=== PATIENT | female | born 1955 | race Caucasian/White ===

== ENCOUNTER 2016-07-25 10:02 | Day surgery (SDC) | payer BC ==
[2016-07-23 15:31] VITALS: BMI 30.3
[~2016-07-25 10:02] MED LIST: LACTATED RINGERS 1,000 ML IV SCH; LIDOCAINE 1% 20 ML VIAL (10MG/ML) FOR IV START INTRADERMA PRN
[2016-07-25 10:49] VITALS: TEMP 98.5
[2016-07-25] MEDS ORDERED: PROPOFOL 10 MG/ML 20 ML VIAL IV ONE (11:17)
--- NOTE | 2016-07-25 11:32 | P.PCN ---
Date of Procedure: 07/25/16 Procedure(s) Performed: BRIEF HISTORY: Patient is a 60-year-old pleasant white female, scheduled for an elective colonoscopy as a part of evaluation of prior history of colon polyps. Last endoscopy was in 2012 and was noted to have tubular adenoma. PROCEDURE PERFORMED: Colonoscopy with biopsy. PREOPERATIVE DIAGNOSIS: History of colon polyps. IV sedation per Anesthesia. PROCEDURE: After informed consent was obtained, the patient, was brought into the endoscopy unit. IV sedation was administered by Anesthesia under continuous monitoring. Digital rectal examination was normal. Initially the Olympus CF- 160 flexible video colonoscope was then inserted in the rectum, gradually advanced into the cecum without any difficulty. Careful examination was performed as the scope was gradually being withdrawn. Ileocecal valve and the appendiceal orifice were visualized and appeared normal. Prep was excellent. Mucosa of the cecum, ascending colon, appeared normal. In the hepatic flexure there was a 5 mm polyp that was removed by biopsy. The rest of the transverse colon, descending colon, sigmoid colon, and rectum appeared normal. Scattered sigmoid diverticulosis seen. Retroflexion was performed in the rectum and no lesions were seen. The patient tolerated the procedure well. IMPRESSION: 5 mm hepatic flexure polyp status post removal by biopsy. Scattered sigmoid diverticulosis. RECOMMENDATIONS: Findings of this examination were discussed with the patient as well as her family. She was advised to follow with the biopsy results. If the biopsy shows a tubular adenoma she can have a repeat colonoscopy in 5 years.
[2016-07-25 11:43] VITALS: RESP 16
[2016-07-25 12:08] VITALS: BP 130/85; PULSE 62
== END 2016-07-25 12:28 | disposition home or self-care (01) ==
LOC: ORWHC2ENDO 10:02
PROVIDERS: ATTEND Internal Medicine Gastroenterology
DX: Z12.11 Encounter for screening for malignant neoplasm of colon (principal); D12.3 Benign neoplasm of transverse colon; K57.30 Diverticulosis of large intestine without perforation or abscess without bleeding; Z86.010 Personal history of colon polyps; K21.9 Gastro-esophageal reflux disease without esophagitis; E78.5 Hyperlipidemia, unspecified; J45.909 Unspecified asthma, uncomplicated; F17.200 Nicotine dependence, unspecified, uncomplicated; Z79.899 Other long term (current) drug therapy; Z88.1 Allergy status to other antibiotic agents; Z88.5 Allergy status to narcotic agent
CPT/HCPCS: 88305; 45380; J2704

== ENCOUNTER → 2017-03-12 | Outpatient (CLI) | payer BC ==
--- NOTE | 2017-03-12 12:26 | WWHP ---
[facility] - HISTORY AND PHYSICAL DATE OF SERVICE: 03/12/2017 CHIEF COMPLAINT: The patient is here for her routine gynecologic exam and mammogram. HPI: This is a 61-year-old G3, P3 with an LMP of 2010. The patient has been experiencing vaginal dryness and would like to try estrogen vaginal cream again. She states she briefly used it in the past, but decided not to use it. She would like a prescription for this. She is otherwise without complaints. She denies any postmenopausal bleeding. PAST MEDICAL HISTORY: Elevated cholesterol and seasonal allergies. MEDICATIONS: 1. Zyrtec over the counter 1 daily. 2. Atorvastatin 40 mg daily. 3. Magnesium 400 mg daily. 4. Vitamin D3 two thousand units daily. 5. Multivitamin daily. ALLERGIES: CODEINE and KEFLEX. KEFLEX caused a yeast infection. PAST SURGICAL HISTORY: Colonoscopy in 2017 and this was her third one. 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 SOCIAL HISTORY: She smokes about a half a pack of cigarettes per day and denies alcohol and drug use. FAMILY HISTORY: Father had an GA. Brother has type 1 diabetes. REVIEW OF SYSTEMS: She has gained about 14 pounds over the last year. She denies cardiac or GI problems. RESPIRATORY: She has recently gotten over bronchitis. PHYSICAL EXAM: Blood pressure 121/88, height 5 feet 6 inches, weight 198 pounds, BMI 32, temperature 98.4, pulse 75. This is a well-developed, well-nourished, white female, who is alert and oriented x3, in no acute distress. HEENT is within normal limits. NECK: Supple without mass or thyromegaly. CHEST AND LUNGS: Clear to auscultation. HEART: Regular rate and rhythm. Breasts are without mass or discharge. Axillary exam is negative for adenopathy. Back negative for CVA tenderness. ABDOMEN: Soft, nontender, without palpable masses. PELVIC EXAM: External genitalia reveals mild atrophy without lesions. Cervix and vagina reveal mild atrophy without lesions. There is no evidence of prolapse. The uterus is mid position nongravid size and nontender. There are no palpable adnexal masses or tenderness. Rectovaginal exam is negative for mass or tenderness and is negative for occult blood. EXTREMITIES: Nontender. IMPRESSION: 1. A 61-year-old menopausal female with normal gynecologic exam. 2. Vaginal dryness secondary to atrophy. PLAN: 1. Pap smear was performed. 2. Self breast examination was discussed. 3. Mammogram will be done today. 4. The patient will restart Estrace vaginal cream 1 to 2 g intravaginally twice weekly and a prescription was given to the patient for this. 5. Osteoporosis prevention was discussed and bone density testing will be due in approximately 2 years. 6. She will return in one year. MMODL / IJN: [id number] /
--- NOTE | 2017-03-14 08:31 | MM ---
Reason for exam: screening (asymptomatic). Last mammogram was performed 1 year and 2 months ago. History: Patient is postmenopausal. Physical Findings: A clinical breast exam by your physician is recommended on an annual basis and results should be correlated with mammographic findings. MG Screening Mammo w CAD Bilateral CC and MLO view(s) were taken. Prior study comparison: January 04, 2016, bilateral MG screening mammo w CAD. February 11, 2014, bilateral MG screening mammo w CAD. There are scattered fibroglandular densities. Stable asymmetric density latral left breast. No significant changes when compared with prior studies. ASSESSMENT: Negative, BI-RAD 1 RECOMMENDATION: Routine screening mammogram of both breasts in 1 year.
== END | disposition home or self-care (01) ==
LOC: WWCWWP 09:19
PROVIDERS: ATTEND Obstetrics & Gynecology
DX: Z12.31 Encounter for screening mammogram for malignant neoplasm of breast (principal)

== ENCOUNTER → 2018-06-03 | Outpatient (CLI) | payer BC ==
[2018-06-03 13:16] VITALS: BP 130/86; PULSE 75; RESP 18; TEMP 98.4; BMI 32.3
--- NOTE | 2018-06-03 13:58 | P.HPOB ---
History of Present Illness H&P Date: 06/03/18 Chief Complaint: The patient is here for her routine gynecologic exam and ma mmogram. This is a 62-year-old G3 PIII with analogy of 2010. The patient has been experiencing vaginal dryness with sexual activity. She was previously given a prescription for vaginal estrogen cream which she did not use during the past year. She had used the cream briefly approximately 2 years ago and she is requesting another prescription for this. She is otherwise without gynecologic complaints and denies any postmenopausal bleeding. She states she went to the emergency room on 05/26/18 because of headache and her blood pressure was elevated at that time. She is still undergoing a workup for this. She states she had a CT scan of the head which was negative per the patient. Review of Systems The patient's weight has been stable over the last year. She denies respiratory, cardiac, or G.I. problems. Past Medical History Past Medical History: Hyperlipidemia, Hypertension Additional Past Medical History / Comment(s): seasonal allergies. 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 History of Any Multi-Drug Resistant Organisms: None Reported Past Surgical History: No Surgical Hx Reported Additional Past Surgical History / Comment(s): colonoscopy 2017(3rd). Past Anesthesia/Blood Transfusion Reactions: No Reported Reaction Past Psychological History: No Psychological Hx Reported Smoking Status: Current every day smoker (Half pack per day) Past Alcohol Use History: Rare Past Drug Use History: None Reported Additional History: She has been since 1980 and does not work outside the home. - Past Family History Mother Family Medical History: No Reported History Father Family Medical History: Myocardial Infarction ([place]) Brother(s) Family Medical History: Diabetes Mellitus Medications and Allergies Home Medications Medication Instructions Recorded Confirmed Type Atorvastatin [Lipitor] 40 mg PO HS MDD d 07/23/16 06/03/18 History Calcium Carbonate/Vitamin D3 600 mg PO DAILY 06/03/18 06/03/18 History [Calcium 600-Vit D3 200 Tablet] Multivit-Minerals/Folic Acid 150 mcg PO DAILY 06/03/18 06/03/18 History [Centrum Multigummies] Allergies Allergy/AdvReac Type Severity Reaction Status Date / Time cephalexin [From Keflex] AdvReac yeast Verified 06/03/18 13:11 infection codeine AdvReac Unknown Verified 06/03/18 13:11 Exam Vital Signs Temp Pulse Resp BP Pulse Ox 06/03/18 13:12 98.4 F 75 18 130/86 91 L Intake and Output 06/02/18 06/03/18 06/03/18 22:59 06:59 14:59 Other: Weight 90.718 kg Height 5'6", weight 200 pounds, BMI 32.3. This is a well-developed well-nourished white female who is alert and oriented times 3 in no acute distress. HEENT: Within normal limits. NECK: Supple without mass or thyromegaly. CHEST AND LUNGS: Clear to auscultation. HEART: Regular rate and rhythm. BREASTS: Are without mass or discharge. AXILLARY EXAM: Negative for adenopathy. BACK: Negative for CVA tenderness. ABDOMEN: Soft, nontender, without palpable masses. PELVIC EXAM: Normal external genitalia with mild atrophy. Cervix and vagina appear normal with mild atrophy. There is no unusual discharge. There is no evidence of prolapse. The uterus is midposition, nongravid size and nontender. There are no palpable adnexal masses or tenderness. RECTAL EXAM: rectovaginal exam is negative for mass or tenderness and is negative for occult blood. EXTREMITIES: Nontender. IMPRESSION: 1. 62-year-old menopausal female with normal gynecologic exam. 2. Vaginal dryness secondary to atrophy. 3. Osteopenia PLAN: 1. Pap smear was deferred since she had a normal one on 03/12/2017. 2. Self breast awareness was discussed with the patient. 3. Screening mammogram will be done today. 4. She will again try estrogen vaginal cream. An electronic prescription will be sent to [facility] pharmacy in [place] for Premarin vaginal cream. She will use 1 g intravaginally 2 times weekly. She will call if she has any problems with this. 5. Will plan repeating bone density testing an approximate 1 years. Her last bone density test was borderline in December 2015. 6.She was advised to return in one year for her annual well woman exam.
--- NOTE | 2018-06-04 11:49 | MM ---
Reason for exam: screening (asymptomatic). Last mammogram was performed 1 year and 3 months ago. History: Patient is postmenopausal. Physical Findings: A clinical breast exam by your physician is recommended on an annual basis and results should be correlated with mammographic findings. MG Screening Mammo w CAD Bilateral CC and MLO view(s) were taken. Prior study comparison: March 12, 2017, bilateral MG screening mammo w CAD. January 04, 2016, bilateral MG screening mammo w CAD. There are scattered fibroglandular densities. Benign appearing bilateral calcifications. No suspicious abnormality. No significant changes when compared with prior studies. ASSESSMENT: Benign, BI-RAD 2 RECOMMENDATION: Routine screening mammogram of both breasts in 1 year.
== END ==
LOC: WWCWWP 12:29
PROVIDERS: ATTEND Obstetrics & Gynecology
DX: Z12.31 Encounter for screening mammogram for malignant neoplasm of breast (principal)
CPT/HCPCS: 77067

== ENCOUNTER → 2019-11-04 | Outpatient (CLI) | payer BC ==
[2019-11-04 09:30] VITALS: BP 116/82; PULSE 78; RESP 18; TEMP 98.8
--- NOTE | 2019-11-04 10:18 | P.HPOB ---
History of Present Illness H&P Date: 11/04/19 Chief Complaint: The patient is here for her routine gynecologic exam and ma mmogram. This is a 64-year-old with an LMP of 2010. The patient continues to experience vaginal dryness with sexual intercourse. She was given a prescription for vaginal estrogen cream which she tried once but decided not to use it. She no somebody that is used Imvexxy vaginal inserts and she would like to try this. She understands that this also is an estrogen containing medication. She is otherwise without complaints and denies any postmenopausal bleeding. Review of Systems The patient has lost 5 pounds over the last year. She denies respiratory, cardi ac, or G.I. problems. Musculoskeletal: She has been having some hip problems. Past Medical History Past Medical History: Hyperlipidemia, Hypertension Additional Past Medical History / Comment(s): seasonal allergies. Diverticulosis. 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 History of Any Multi-Drug Resistant Organisms: None Reported Past Surgical History: No Surgical Hx Reported Additional Past Surgical History / Comment(s): colonoscopy 2017(3rd). Past Anesthesia/Blood Transfusion Reactions: No Reported Reaction Past Psychological History: No Psychological Hx Reported Smoking Status: Current every day smoker Past Alcohol Use History: Rare (2 per Year) Past Drug Use History: None Reported Additional History: She has been since 1980 and is sexually active. She works at [employer]. - Past Family History Mother Family Medical History: No Reported History Father Family Medical History: Myocardial Infarction ([place]) Brother(s) Family Medical History: Diabetes Mellitus Medications and Allergies Home Medications Medication Instructions Recorded Confirmed Type Atorvastatin [Lipitor] 40 mg PO HS MDD d 07/23/16 11/04/19 History Calcium Carbonate/Vitamin D3 600 mg PO DAILY 06/03/18 11/04/19 History [Calcium 600-Vit D3 200 Tablet] lisinopriL [Zestril] 2.5 mg PO DAILY 11/04/19 11/04/19 History Allergies Allergy/AdvReac Type Severity Reaction Status Date / Time cephalexin [From Keflex] AdvReac yeast Verified 11/04/19 09:23 infection codeine AdvReac Unknown Verified 11/04/19 09:23 Exam Vital Signs Temp Pulse Resp BP Pulse Ox 11/04/19 09:26 98.8 F 78 18 116/82 96 Intake and Output 11/03/19 11/04/19 11/04/19 22:59 06:59 14:59 Other: Weight 88.451 kg Height 5 feet 5 inches, weight 195 pounds, BMI 32.4. This is a well-developed well-nourished white female who is alert and oriented times 3 in no acute distress. HEENT: Within normal limits. NECK: Supple without mass or thyromegaly. CHEST AND LUNGS: Clear to auscultation. HEART: Regular rate and rhythm. BREASTS: Are without mass or discharge. AXILLARY EXAM: Negative for adenopathy. BACK: Negative for CVA tenderness. ABDOMEN: Soft, nontender, without palpable masses. PELVIC EXAM: Normal external genitalia with mild to moderate atrophy. Cervix and vagina appear normal with mild to moderate atrophy. There is no unusual discharge. There is no evidence of prolapse. The uterus is midposition, nongra vid size and nontender. There are no palpable adnexal masses or tenderness. RECTAL EXAM: Rectovaginal exam is negative for mass or tenderness and is negative for occult blood. EXTREMITIES: Nontender. IMPRESSION: 1. 64-year-old menopausal female with normal gynecologic exam. 2. Dyspareunia secondary to vaginal dryness related to genital atrophy. 3. Osteopenia PLAN: 1. Pap smear was performed. 2. Self breast awareness was discussed with the patient. 3. Screening mammogram will be done today. 4. Osteoporosis prevention was discussed. I have stressed the importance of adequate calcium, vitamin D and regular exercise. Recommended amounts of calcium and vitamin D were also discussed. I have recommended bone density testing and the order slip was given to the patient for this. 5. The patient like to have a trial of Imvexxy estradiol vaginal inserts. She understands this does contain estrogen and there are some possible risks with estrogen. She understands that she should call if she has problems such as vaginal bleeding. The prescription for Imvexxy 10mcg vaginally 2 times weekly. The electronic prescription will be sent to my her pharmacy in [place]. 6. She was advised to return in one year for her annual well woman exam.
--- NOTE | 2019-11-05 09:09 | MM ---
Reason for exam: screening (asymptomatic). Last mammogram was performed 1 year and 5 months ago. History: Patient is postmenopausal. Physical Findings: A clinical breast exam by your physician is recommended on an annual basis and results should be correlated with mammographic findings. MG Screening Mammo w CAD Bilateral CC and MLO view(s) were taken. Prior study comparison: June 03, 2018, bilateral MG screening mammo w CAD. March 12, 2017, bilateral MG screening mammo w CAD. There are scattered fibroglandular densities. Finding #1: There is a 7 mm obscured mass in the upper outer quadrant of the right breast. Finding #2: There are typically benign calcifications in both breasts. ASSESSMENT: Incomplete: need additional imaging evaluation, BI-RAD 0 RECOMMENDATION: Special view mammogram of the right breast. If lesion persists on supplemental views, image directed ultrasound is recommended. [facility] will attempt to contact patient to return for supplemental views and ultrasound if indicated.
--- NOTE | 2019-11-17 14:06 | P.PN ---
Progress Note - Text Progress Note Date: 11/17/19 OUTPATIENT FOLLOW-UP NOTE TEST(S)/RESULTS: Test results from 11/04/2019 include negative Pap smear and mammogram did require a right breast workup which was done on 11/12/2019. This was felt to be probably benign. Repeat right diagnostic mammogram in 6 months was recommended. METHOD OF NOTIFICATION: She was notified by phone. 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 DIAGNOSIS: Negative Pap smear and probably benign mammogram with right breast workup. DISCUSSION: PLAN: Repeat right breast diagnostic mammogram in 6 months and the order slip will be mailed to the patient for this. She was advised to return in one year for her annual well woman exam and as needed.
== END | disposition home or self-care (01) ==
LOC: WWCWWP 09:14
PROVIDERS: ATTEND Obstetrics & Gynecology
DX: Z12.31 Encounter for screening mammogram for malignant neoplasm of breast (principal)
CPT/HCPCS: 77067

== ENCOUNTER → 2019-11-12 | Outpatient (CLI) | payer BC ==
--- NOTE | 2019-11-12 08:16 | MM ---
Reason for exam: additional evaluation requested from abnormal screening. Last mammogram was performed less than 1 month ago. History: Patient is postmenopausal. Physical Findings: Nurse did not find any significant physical abnormalities on exam. MG Work Up Mamm w CAD RT CC and MLO view(s) were taken of the right breast. Prior study comparison: November 04, 2019, bilateral MG screening mammo w CAD. June 03, 2018, bilateral MG screening mammo w CAD. The breast tissue is heterogeneously dense. This may lower the sensitivity of mammography. Benign appearing calcifications in the right breast. These results were verbally communicated with the patient and result sheet given to the patient on 11/12/19. ASSESSMENT: Probably benign, BI-RAD 3 RECOMMENDATION: Follow-up diagnostic mammogram of the right breast in 6 months.
== END | disposition home or self-care (01) ==
LOC: RADMAMWWP 06:52
PROVIDERS: ATTEND Obstetrics & Gynecology
DX: R92.8 Other abnormal and inconclusive findings on diagnostic imaging of breast (principal)
CPT/HCPCS: 77065

== ENCOUNTER → 2020-03-11 | Outpatient (CLI) | payer BC ==
--- NOTE | 2020-03-11 16:12 | BD ---
EXAMINATION TYPE: Axial Bone Density DATE OF EXAM: 03/11/2020 COMPARISON: NONE CLINICAL HISTORY: Height: 5 FT 4 1/2 IN Weight: 205 FRAX RISK QUESTIONS: Alcohol (3 or more units per day): NO Family History (Parent hip fracture): YES Glucocorticoids (More than 3mos): NO (Ex: prednisone, prednisolone, methylprednisolone, dexamethasone, and hydrocortisone). History of Fracture in Adulthood: NO Secondary Osteoporosis: 1. Type 1 Diabetes: NO 2. Hyperthyroidism: NO 3. Menopause before 45: NO 4. Malnutrition: NO 5. Chronic liver disease: NO Rheumatoid Arthritis: NO Current Tobacco Use: YES RISK FACTORS HISTORY OF: Family History of Osteoporosis: NO Active: YES Diet low in dairy products/other sources of calcium: NO Postmenopausal woman: AGE 54 Take estrogen and/or progesterone medications: NONE Lost more than 2 inches in height since high school: NO MEDICATIONS: Additional Medications: ATORVASTATIN, BLOOD PRESSURE MEDS Additional History: EXAM MEASUREMENTS: Bone mineral densitometry was performed using the EmergentDetection System. Bone mineral density as measured about the Lumbar spine is: ----- L1-L4(G/cm2): 1.025 T Score Values are as follows: ----- L2: -1.0 ----- L3: -0.8 ----- L4: -1.5 ----- L1-L4: -1.3 Bone mineral density has: DECREASED -1.7 % since study of: 2016 Bone mineral density about the R hip (g/cm2): 0.905 Bone mineral density about the L hip (g/cm2): 0.855 T Score values are as follows: -----R Neck: -1.0 -----L Neck: -1.3 -----R Total: -0.1 -----L Total: 0.4 Bone mineral density has: INCREASED 0.5 % since study of: 2016 IMPRESSION: Osteopenia (T Score between -2.5 and -1). There is slightly increased risk of fracture and the patient may be considered for treatment. Re-Screen 2-5 years. NOTE: T-SCORE=SD OF THE YOUNG ADULT MEAN.
== END | disposition home or self-care (01) ==
LOC: RADBDWWP 07:20
PROVIDERS: ATTEND Obstetrics & Gynecology
DX: M85.80 Other specified disorders of bone density and structure, unspecified site (principal); Z78.0 Asymptomatic menopausal state
CPT/HCPCS: 77080

== ENCOUNTER → 2020-05-19 | Outpatient (CLI) | payer BC ==
--- NOTE | 2020-05-19 10:12 | MM ---
Reason for exam: follow-up at short interval from prior study. Last mammogram was performed 6 months ago. History: Patient is postmenopausal. Physical Findings: Nurse did not find any significant physical abnormalities on exam. MG Diagnostic Mammo RT w CAD CC and MLO view(s) were taken of the right breast. Prior study comparison: November 12, 2019, right breast MG work up mamm w CAD RT. November 04, 2019, bilateral MG screening mammo w CAD. There are scattered fibroglandular densities. Stable benign calcifications. These results were verbally communicated with the patient and result sheet given to the patient on 05/19/20. ASSESSMENT: Benign, BI-RAD 2 RECOMMENDATION: Return to routine screening mammogram schedule for both breasts. Back on schedule.
== END | disposition home or self-care (01) ==
LOC: RADMAMWWP 07:01
PROVIDERS: ATTEND Obstetrics & Gynecology
DX: R92.8 Other abnormal and inconclusive findings on diagnostic imaging of breast (principal)
CPT/HCPCS: 77065

== ENCOUNTER → 2021-01-10 | Outpatient (CLI) | payer BC ==
[2021-01-10 09:45] VITALS: BP 125/85; PULSE 74; RESP 18; TEMP 99
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
--- NOTE | 2021-01-11 10:26 | MM ---
Reason for exam: screening (asymptomatic). Last mammogram was performed 8 months ago. History: Patient is postmenopausal. Physical Findings: A clinical breast exam by your physician is recommended on an annual basis and results should be correlated with mammographic findings. MG 3D Screening Mammo W/Cad Bilateral CC and MLO view(s) were taken. Prior study comparison: May 19, 2020, right breast MG diagnostic mammo RT w CAD. There are scattered fibroglandular densities. Benign appearing bilateral calcifications. No significant changes when compared with prior studies. ASSESSMENT: Benign, BI-RAD 2 RECOMMENDATION: Routine screening mammogram of both breasts in 1 year.
== END | disposition home or self-care (01) ==
LOC: WWCWWP 09:10
PROVIDERS: ATTEND Obstetrics & Gynecology
DX: Z12.31 Encounter for screening mammogram for malignant neoplasm of breast (principal)
CPT/HCPCS: 77063; 77067

== ENCOUNTER 2021-07-25 08:10 | Day surgery (SDC) | payer BC ==
[2021-07-21 12:35] VITALS: BMI 32.8
[~2021-07-25 08:10] MED LIST changes: +LIDOCAINE 1% (10MG/ML) FOR IV START INTRADERMA PRN; -LIDOCAINE 1% 20 ML VIAL (10MG/ML) FOR IV START INTRADERMA PRN; +ONDANSETRON 4 MG/2 ML VIAL IVP PRN
[2021-07-25 08:36] VITALS: TEMP 97.1
[2021-07-25] MEDS ORDERED: PROPOFOL 10 MG/ML 20 ML VIAL IV ONE (09:32)
[2021-07-25] MEDS ORDERED: LIDOCAINE 2% INJ 20 MG/ML (2 ML VIAL) ONE (09:32)
--- NOTE | 2021-07-25 09:42 | P.PCN ---
Date of Procedure: 07/25/21 Procedure(s) Performed: BRIEF HISTORY: Patient is a 65-year-old pleasant female scheduled for an elective colonoscopy as a part of evaluation of prior history of colon polyps. Last colonoscopy was 5 years ago. PROCEDURE PERFORMED: Colonoscopy. PREOPERATIVE DIAGNOSIS: History of colon polyps. IV sedation per Anesthesia. PROCEDURE: After informed consent was obtained, the patient, was brought into the endoscopy unit. IV sedation was administered by Anesthesia under continuous monitoring. Digital rectal examination was normal. Initially the Olympus CF-160 flexible video colonoscope was then inserted in the rectum, gradually advanced into the cecum without any difficulty. Careful examination was performed as the scope was gradually being withdrawn. Ileocecal valve and the appendiceal orifice were visualized and appeared normal. Prep was excellent. Mucosa of the cecum, ascending colon, transverse colon, descending colon, sigmoid colon, and rectum appeared normal. Retroflexion was performed in the rectum and no lesions were seen. Scattered sigmoid diverticulosis. The patient tolerated the procedure well. IMPRESSION: Normal-appearing colon from rectum to cecum no evidence of colorectal neoplasia. Scattered sigmoid diverticulosis. RECOMMENDATIONS: Findings of this examination were discussed with the patient as well as a family. She was advised to have a repeat anoscopy in 5 years now because of the prior history of colon polyps..
[2021-07-25 09:53] VITALS: RESP 16
[2021-07-25 10:12] VITALS: BP 144/93; PULSE 63
== END 2021-07-25 10:25 | disposition home or self-care (01) ==
LOC: ORWHC2ENDO 08:10
PROVIDERS: ATTEND Internal Medicine Gastroenterology
DX: K57.30 Diverticulosis of large intestine without perforation or abscess without bleeding (principal); Z86.010 Personal history of colon polyps
CPT/HCPCS: 45378; J2704; J2001

== ENCOUNTER → 2021-08-28 | Outpatient (CLI) | payer BC ==
--- NOTE | 2021-08-28 08:56 | CTL ---
EXAMINATION TYPE: CT Low Dose Lung DATE OF EXAM ORDERED: 08/28/2021 HISTORY: Tobacco use. Lung cancer screening CT DLP: 84.[address] CTDI: 2.2 mGy Automated exposure control for dose reduction was used. SCREENING VISIT: Baseline COMPARISON: No previous CT scan is available for comparison TECHNIQUE: Low dose computed tomography scan was performed through the chest at 1 mm thick sections a nd reconstructed images in multiple planes at 1 mm and [address] DIAGNOSTIC QUALITY: Satisfactory FINDINGS: LUNG NODULES: Right upper lung lobe solid [address] image 44. Left upper lobe solid [address] image 66. LUNGS: COPD: Severity: None Fibrosis: Severity: None Lymph nodes: No pathologically enlarged lymph nodes. Other findings: Bilateral basal linear pulmonary atelectasis. Other few scattered smaller pulmonary n odules. RIGHT PLEURAL SPACE: Effusion: None Calcification: None Thickening: None Pneumothorax: None LEFT PLEURAL SPACE: Effusion: None Calcification: None Thickening: None Pneumothorax: None HEART: Heart Size: Normal Coronary Calcification: Mild Pericardial Effusion: None OTHER FINDINGS: Upper abdomen: None Bony thorax: No aggressive bone lesion. Supraclavicular region: None Other: None IMPRESSION: Few scattered pulmonary nodules measuring up to 4 mm as described above. No suspicious griselda ng lesion. CT LUNG RAD AND CT CHEST RECOMMENDATION: Lung-Rad 2 Benign Appearance or Behavior: Continue annual sc reening with LDCT in 12 months. S Modifier (other clinically significant findings): None
== END | disposition home or self-care (01) ==
LOC: RADCTMAIN 06:48
PROVIDERS: ATTEND Internal Medicine
DX: Z12.2 Encounter for screening for malignant neoplasm of respiratory organs (principal); Z87.891 Personal history of nicotine dependence
CPT/HCPCS: 71271

== ENCOUNTER → 2022-01-23 | Outpatient (CLI) | payer BC ==
--- NOTE | 2022-01-23 13:35 | MM ---
Reason for Exam: Screening (asymptomatic). Last mammogram was performed 1 year(s) and 1 month(s) ago. Patient History: Menarche at age 15. First Full-Term at age 27. Postmenopausal. Risk Values: [place] 5 year model risk: 1.7%. NCI Lifetime model risk: 6.1%. Prior Study Comparison: 11/12/2019 Right Diagnostic Mammogram, [facility]. 05/19/2020 Right Diagnostic Mammogram, [facility]. 01/10/2021 Bilateral Screening Mammogram, [facility]. Tissue Density: There are scattered fibroglandular densities. Findings: Analyzed By CAD. There are a few small scattered benign-appearing round calcifications throughout the bilateral breasts redemonstrated. Benign-appearing bilateral axillary lymph nodes are seen. There is no suspicious new group of microcalcifications or new suspicious mass in either breast. Overall Assessment: Benign, BI-RAD 2 Management: Screening Mammogram of both breasts in 1 year. A clinical breast exam by your physician is recommended on an annual basis and results should be correlated with mammographic findings. Electronically signed and approved by: Bart Archuleta M.D.
--- NOTE | 2022-01-23 15:52 | BD ---
EXAMINATION TYPE: Axial Bone Density DATE OF EXAM: 01/23/2022 COMPARISON: 03.11.20 CLINICAL HISTORY: 66 years year old Female. ICD-10 CODE: Z78.0 POST MENOPAUSAL WITHOUT HRT Height: 65.5IN Weight: 194LB FRAX RISK QUESTIONS: Family History (Parent hip fracture): YES Secondary Osteoporosis: 3. Menopause before 45: NO RISK FACTORS HISTORY OF: Family History of Osteoporosis: YES Active: YES Postmenopausal woman: YES MEDICATIONS: Additional Medications: BP MED, CHOLESTEROL MED, VITAMIN D Additional History: EXAM MEASUREMENTS: Bone mineral densitometry was performed using the [employer]. Bone mineral density as measured about the Lumbar spine is: ----- L1-L4(G/cm2): 1.022 T Score Values are as follows: ----- L1: -1.7 ----- L2: -1.9 ----- L3: -1.0 ----- L4: -0.9 ----- L1-L4: -1.3 Bone mineral density has: Decreased -1.7% since study of: 03.11.20 Bone mineral density about the R hip (g/cm2): 0.925 Bone mineral density about the L hip (g/cm2): 1.032 T Score values are as follows: -----R Neck: -1.5 -----L Neck: -1.3 -----R Total: -0.7 -----L Total: 0.2 Bone mineral density has: Decreased 4.6% since study of: 03.11.20 FRAX%s: The graph provided illustrates a 15.9% chance for a major osteoporotic fx and a 1.2% chance f or the hips probability for fx in 10 years time. IMPRESSION: Osteopenia (T Score between -2.5 and -1). There is slightly increased risk of fracture and the patient may be considered for treatment. Re-Screen 2-5 years. NOTE: T-SCORE=SD OF THE YOUNG ADULT MEAN.
== END | disposition home or self-care (01) ==
LOC: RADMAMWWP 07:50
PROVIDERS: ATTEND Obstetrics & Gynecology
DX: Z12.31 Encounter for screening mammogram for malignant neoplasm of breast (principal); M85.89 Other specified disorders of bone density and structure, multiple sites; Z78.0 Asymptomatic menopausal state
CPT/HCPCS: 77063; 77067; 77080

== ENCOUNTER → 2022-01-23 | Outpatient (CLI) | payer BC ==
[2022-01-23 08:06] VITALS: BP 138/89; PULSE 87; RESP 18; TEMP 98.8
--- NOTE | 2022-01-23 08:59 | P.HPOB ---
History of Present Illness H&P Date: 01/23/22 Chief Complaint: The patient is here for her routine gynecologic exam and ma mmogram. This is a 66-year-old with an LMP of 2010. The patient has been experiencing some groin pain for about 1 year. She points more to the right groin area. She states this can cause her trouble walking. She has had occasional pelvic pains which she attributes to diverticulosis and can occasionally feel like labor pains. She has been seeing different doctors for the groin pains. Dr. Henry did a spine MRI which showed some lumbar stenosis. She is otherwise without complaints and denies any postmenopausal bleeding. She has not been using the estradiol vaginal cream, but states she would like to try it and she does have the medication at home. Review of Systems The patient has lost 12 pounds over the last year. She has been trying to lose weight with diet and exercise. Exercise has been more difficult because of the groin pains. She denies respiratory, cardiac, or G.I. problems. Past Medical History Past Medical History: GERD/Reflux, Hyperlipidemia, Hypertension, Osteoarthritis (OA) Additional Past Medical History / Comment(s): Seasonal allergies. Diverticulosis. Bursitis right hip. Hx ortega breasts and abdomen (was robert tomatoes), hospitalized 4 days, all healed. Hx Vertigo. 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 History of Any Multi-Drug Resistant Organisms: None Reported Past Surgical History: Breast Surgery Additional Past Surgical History / Comment(s): Colonoscopy 2021(next after 5yr). Past Anesthesia/Blood Transfusion Reactions: No Reported Reaction Past Psychological History: Depression Additional Psychological History / Comment(s): Bouts of depression, resolved. Smoking Status: Former smoker Past Alcohol Use History: Rare (2 per year) Additional Past Alcohol Use History / Comment(s): Quit smoking in October 2021. Smoker for many yrs, 1/2 ppd. Past Drug Use History: None Reported Additional History: She has been since 1980. She works at [employer]. - Past Family History Mother Family Medical History: No Reported History Father Family Medical History: Myocardial Infarction ([place]) Brother(s) Family Medical History: Diabetes Mellitus Sister(s) Family Medical History: Pulmonary Embolus Additional Family Medical History / Comment(s): PE from [place]. Medications and Allergies Home Medications Medication Instructions Recorded Confirmed Type Atorvastatin [Lipitor] 40 mg PO HS 07/23/16 01/23/22 History Aspirin [[place] Aspirin EC] 81 mg PO DAILY 01/10/21 01/23/22 History Vitamin C (Unknown Dose) 1 tab PO DAILY 07/21/21 01/23/22 History Vitamin D (Unknown Dose) 1 tab PO DAILY 07/21/21 01/23/22 History lisinopriL [Zestril] 5 mg PO HS 07/21/21 01/23/22 History Multivitamin [Multivitamins Adult 1 tab PO DAILY 01/23/22 01/23/22 History Gummies] Allergies Allergy/AdvReac Type Severity Reaction Status Date / Time cephalexin [From Keflex] AdvReac yeast Verified 01/23/22 08:00 infection codeine AdvReac Unknown Verified 01/23/22 08:00 Quinolones AdvReac Unknown Verified 01/23/22 08:00 Exam Vital Signs Temp Pulse Resp BP Pulse Ox 01/23/22 08:03 98.8 F 87 18 138/89 95 Intake and Output 01/22/22 01/23/22 01/23/22 22:59 06:59 14:59 Other: Weight 89.358 kg Height 5 feet 5 inches, weight 197 pounds, BMI 32.8. This is a well-developed well-nourished white female who is alert and oriented times 3 in no acute distress. HEENT: Within normal limits. NECK: Supple without mass or thyromegaly. CHEST AND LUNGS: Clear to auscultation. HEART: Regular rate and rhythm. BREASTS: Are without mass or discharge. AXILLARY EXAM: Negative for adenopathy. BACK: Negative for CVA tenderness. ABDOMEN: Soft, nontender, without palpable masses. PELVIC EXAM: Normal external genitalia with mild atrophy. Cervix and vagina appear normal with mild atrophy. There is no unusual discharge. There is no evidence of prolapse. The uterus is midposition, nongravid size and nontender. There are no palpable adnexal masses or tenderness. RECTAL EXAM: Rectovaginal exam is negative for mass or tenderness and is negative for occult blood. EXTREMITIES: Nontender. IMPRESSION: 1. 66-year-old menopausal female with normal gynecologic exam. 2. 1 year history of groin pain and occasional pelvic pains. 3. History of vaginal dryness with sexual activity. PLAN: 1. Pap smear was performed. If this Pap smear is negative, Pap smears will be discontinued. 2. Self breast awareness was discussed with the patient. We have also discussed symptoms associated with inflammatory breast cancer. 3. Screening mammogram will be done today. 4. Pelvic ultrasound is recommended and the order slip was given to the patient for this. This is to further evaluate her groin and pelvic pains. She had an MRI of the spine which showed some stenosis in the lumbar spine. This was felt to possibly be related to her groin pains. I don't think an ovarian problem would likely cause the groin pains, but we will use the ultrasound to rule out this possibility. 5. Osteoporosis prevention was discussed. I have stressed the importance of adequate calcium, vitamin D and regular exercise. Recommended amounts of calcium and vitamin D were also discussed. Bone density test will be done today. 6. She will use the estradiol vaginal cream that she has, as directed. 7. She was advised to return in one year for her annual well woman exam and as needed.
== END ==
LOC: WWCWWP 07:52
PROVIDERS: ATTEND Obstetrics & Gynecology
DX: Z01.419 Encounter for gynecological examination (general) (routine) without abnormal findings (principal); Z12.31 Encounter for screening mammogram for malignant neoplasm of breast; Z78.0 Asymptomatic menopausal state; Z87.42 Personal history of other diseases of the female genital tract; Z88.5 Allergy status to narcotic agent; Z88.1 Allergy status to other antibiotic agents; F17.200 Nicotine dependence, unspecified, uncomplicated

== ENCOUNTER → 2022-01-30 | Outpatient (CLI) | payer BC ==
--- NOTE | 2022-01-30 13:02 | US ---
EXAMINATION TYPE: US pelvis complete transvag DATE OF EXAM: 01/30/2022 COMPARISON: NONE CLINICAL HISTORY: R10.2 PELVIC AND PERINEAL PAIN. Pain TECHNIQUE: Transvaginal (TV) and Transabdominal (TA) . Transabdominal sonographic images of the pel vis were acquired. Transvaginal sonographic images were medically necessary to better assess the fol lowing anatomy: Uterus and ovaries. EXAM MEASUREMENTS: Uterus: 5.1 x 3.0 x 4.1 cm Endometrial Stripe: .3 cm Right Ovary: 1.1 x 1.7 x 1.2 cm 1. Uterus: Retroverted wnl 2. Endometrium: wnl 3. Right Ovary: wnl 4. Left Ovary: Surgically absent 5. Bilateral Adnexa: wnl 6. Posterior cul-de-sac: wnl IMPRESSION: 1. Normal pelvic ultrasound
--- NOTE | 2022-01-30 18:05 | P.PN ---
Progress Note - Text Progress Note Date: 01/30/22 OUTPATIENT FOLLOW-UP NOTE TEST(S)/RESULTS: Test results from 01/23/2022 include negative Pap smear and benign mammogram. Bone density test done on that day shows osteopenia. Pelvic ultrasound done on 01/30/2022 was normal. METHOD OF NOTIFICATION: She was notified by phone. PATIENT COMMENTS: DIAGNOSIS: Negative Pap smear, benign mammogram, osteopenia, and normal pelvic ultrasound. DISCUSSION: I have stressed the importance of getting adequate calcium, vitamin D, and regular exercise. We will plan on repeating the bone density test in 2-3 years. PLAN: She was advised to return in one year for her annual well woman exam.
== END | disposition home or self-care (01) ==
LOC: RADUSWWP 12:06
PROVIDERS: ATTEND Obstetrics & Gynecology
DX: R10.2 Pelvic and perineal pain (principal)
CPT/HCPCS: 76830; 76856

== ENCOUNTER → 2023-02-05 | Outpatient (CLI) | payer BC ==
[2023-02-05 08:27] VITALS: BP 129/87; PULSE 87; RESP 17; TEMP 98.3
--- NOTE | 2023-02-05 08:49 | P.HPOB ---
History of Present Illness H&P Date: 02/05/23 Chief Complaint: The patient is here for her routine gynecologic exam and ma mmogram. This is a 67-year-old with an LMP of 2010. The patient has experienced some pain with sexual intercourse secondary to vaginal dryness. She states she briefly used estrogen cream in the past, but would like to try it again. She also has experienced some breast tenderness greater on the left side. She denies feeling any breast masses. She is otherwise without gynecologic complai nts. Review of Systems She is getting about 9 pounds over the past year. She denies respiratory or cardiac problems. GI: She occasionally has some epigastric burning which is relieved with [id number] Tums. Past Medical History Past Medical History: GERD/Reflux, Hyperlipidemia, Hypertension, Osteoarthritis (OA) Additional Past Medical History / Comment(s): Seasonal allergies. Diverticulosis. Bursitis right hip. Hx ortega breasts and abdomen (was robert tomatoes), hospitalized 4 days, all healed. Hx Vertigo. Lumbar stenosis. 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 History of Any Multi-Drug Resistant Organisms: None Reported Past Surgical History: Breast Surgery Additional Past Surgical History / Comment(s): Colonoscopy 2021(next after 5yr). Past Anesthesia/Blood Transfusion Reactions: No Reported Reaction Past Psychological History: Depression Additional Psychological History / Comment(s): Bouts of depression, resolved. Smoking Status: Current every day smoker (Half-pack per day. She plans to try to quit again.) Past Alcohol Use History: Rare (4 drinks per year.) Additional Past Alcohol Use History / Comment(s): Smoker for many yrs, 1/2 ppd. Past Drug Use History: None Reported Additional History: She has been since 1980. She is no longer working outside of the home. - Past Family History Mother Family Medical History: No Reported History Father Family Medical History: Myocardial Infarction ([place]) Brother(s) Family Medical History: Diabetes Mellitus Sister(s) Family Medical History: Pulmonary Embolus Additional Family Medical History / Comment(s): PE from [employer]. Medications and Allergies Home Medications Medication Instructions Recorded Confirmed Type Atorvastatin [Lipitor] 40 mg PO HS 07/23/16 02/05/23 History Aspirin [[place] Aspirin EC] 81 mg PO DAILY 01/10/21 02/05/23 History Vitamin C (Unknown Dose) 1 tab PO DAILY 07/21/21 02/05/23 History lisinopriL [Zestril] 5 mg PO HS 07/21/21 02/05/23 History Multivitamin [Multivitamins Adult 1 tab PO DAILY 01/23/22 02/05/23 History Gummies] Allergies Allergy/AdvReac Type Severity Reaction Status Date / Time cephalexin [From Keflex] AdvReac yeast Verified 02/05/23 08:04 infection codeine AdvReac Unknown Verified 02/05/23 08:04 Quinolones AdvReac Unknown Verified 02/05/23 08:04 Exam Vital Signs Temp Pulse Resp BP Pulse Ox 02/05/23 08:07 98.3 F 87 17 129/87 98 Intake and Output 02/04/23 02/05/23 02/05/23 22:59 06:59 14:59 Other: Weight 93.44 kg Height 5 feet 5 inches, weight 206 pounds, BMI 34.3. This is a well-developed well-nourished white female who is alert and oriented times 3 in no acute distress. HEENT: Within normal limits. NECK: Supple without mass or thyromegaly. CHEST AND LUNGS: Clear to auscultation. HEART: Regular rate and rhythm. BREASTS: Are without mass or discharge. Breasts are mildly tender bilaterally. AXILLARY EXAM: Negative for adenopathy. BACK: Negative for CVA tenderness. ABDOMEN: Soft, nontender, without palpable masses. PELVIC EXAM: Normal external genitalia with mild atrophy. Cervix and vagina a ppear normal is mild atrophy. There is no unusual discharge. There is no evidence of prolapse. The uterus is midposition, nongravid size and nontender. There are no palpable adnexal masses or tenderness. RECTAL EXAM: Rectovaginal exam is negative for mass or tenderness and is negative for occult blood. EXTREMITIES: Nontender. IMPRESSION: 1. 67-year-old menopausal female with normal gynecologic exam. 2. History of vaginal dryness with sexual activity causing dyspareunia. 3. Mild bilateral breast tenderness without palpable masses. 4. History of osteopenia. PLAN: 1. Pap smears have been discontinued. 2. Breast awareness was discussed with the patient. Because of the breast tenderness, I recommended that she try to decrease caffeine intake. 3. Screening mammogram will be done today. 4. Osteoporosis prevention was discussed. I have stressed the importance of adequate calcium, vitamin D and regular exercise. Recommended amounts of calcium and vitamin D were also discussed. Her last bone density test was on 01/23/2022. We'll plan on repeating the bone density test in 1 year. 5. She will be restarted on estradiol vaginal cream. She will insert 1 g into the vagina 2 times weekly. The electronic prescription will be sent to my her pharmacy in [place]. 6. She was advised to return in one year for her annual well woman exam.
--- NOTE | 2023-02-07 07:53 | MM ---
Reason for Exam: Screening (asymptomatic). Last screening mammogram was performed 12 month(s) ago. Patient History: Menarche at age 15. First Full-Term at age 27. Postmenopausal. Risk Values: Iraida 5 year model risk: 1.7%. NCI Lifetime model risk: 5.9%. Prior Study Comparison: 05/19/2020 Right Diagnostic Mammogram, [facility]. 01/10/2021 Bilateral Screening Mammogram, [facility]. 01/23/2022 Bilateral MG 3D screening mammo w/cad, [facility]. Tissue Density: There are scattered fibroglandular densities. Findings: Analyzed By CAD. Pattern appears symmetrical and stable. Benign round calcifications are present bilaterally. No suspicious groups of microcalcifications, spiculated or lobular masses, architectural distortion or other secondary signs of malignancy are mammographically apparent. Overall Assessment: Benign, BI-RAD 2 Management: Screening Mammogram of both breasts in 1 year. A negative mammogram report should not preclude additional follow up of suspicious palpable abnormalities. Patient should continue monthly self breast exam. A clinical breast exam by your physician is recommended on an annual basis and results should be correlated with mammographic findings. Electronically signed and approved by: Benedicto Eddy D.O. Radiologis
== END ==
LOC: WWCWWP 07:53
PROVIDERS: ATTEND Obstetrics & Gynecology
DX: Z12.31 Encounter for screening mammogram for malignant neoplasm of breast (principal); K21.9 Gastro-esophageal reflux disease without esophagitis; E78.5 Hyperlipidemia, unspecified; I10 Essential (primary) hypertension; M19.90 Unspecified osteoarthritis, unspecified site; F32.A Depression, unspecified; F17.210 Nicotine dependence, cigarettes, uncomplicated; M85.80 Other specified disorders of bone density and structure, unspecified site; N64.4 Mastodynia; N95.2 Postmenopausal atrophic vaginitis; Z78.0 Asymptomatic menopausal state; Z88.1 Allergy status to other antibiotic agents; Z88.5 Allergy status to narcotic agent; Z88.8 Allergy status to other drugs, medicaments and biological substances; Z79.899 Other long term (current) drug therapy; Z79.82 Long term (current) use of aspirin
CPT/HCPCS: 77063; 77067

== ENCOUNTER → 2024-01-02 | Outpatient (CLI) | payer MEDICARE ==
--- NOTE | 2024-01-02 11:41 | CA ---
Exercise Stress Test Report Name: Ivette Hua Exam Date: 01/02/2024 10:37 Exam Location: [place] Stress Ht (in): 65 Wt (lb): 190 BSA: 1.94 Ordering Phys: Mau Hui DO Referring Phys: Ivana Michel [facility] Technologist: Russ Aguirre Age: 68 Gender: F : 1955 Procedure CPT: Indications: H35.033 HYPERTENSIVE RETINOPATHY, BILATERAL ICD-10 Codes: Patient History: Hypertension, hyperlipidemia and family history of heart disease. Medications: Meds past 24 hrs: Pretest Chest Pain: STRESS TEST Gilbert Protocol Exercise Duration (min:sec): 06:[address] Depressions (mm): 0 Angina Score: 0 Blank Score: 6.17 Resting HR (bpm): 101 Peak HR (bpm): 144 Resting BP (mmHg): 122 / 89 Peak BP (mmHg): 202 / 86 MPHR: 152 Target HR: 129 % MPHR: 95 METS: 7.4 Total Dose: Peak Dose: Atropine: Double Product: 51830 BP Response: Stress Termination: TARGET HR REACHED/MAX EXERTION Stress Symptoms: NO SYMPTOMS Stress Summary: The patient's target heart rate was achieved ECG ANALYSIS Resting ECG: Sinus rhythm. Normal conduction. No arrhythmias. Normal repolarization. Stress ECG: No ECG evidence of ischemia with exercise. CONCLUSIONS Patient falls into low-risk group (DTS >= +5). This associates the patient with an annual CV mortality <= 0.5%. Exercise capacity fair to good at 6-10 METS. Normal blood pressure response. Normal ST segment response to stress. Normal electrocardiographic stress test with no evidence of stress induced ischemia Dr. Ricardo Mathew MD (Electronically Signed) Final Date: 02 January 2024 11:40
--- NOTE | 2024-01-02 11:47 | CA ---
Transthoracic Echo Report Name: Ivette Hua Age: 68 Gender: F : 1955 Exam Date: 01/02/2024 11:06 Exam Location: [place] Echo Ht (in): 65 Wt (lb): 190 Ordering Physician: Mau Hui DO Attending/Referring Phys: Ivana Michel [facility] Brea Tapia RDCS Procedure CPT: Indications: H35.033 HYPERTENSIVE RETINOPATHY, BILATERAL Cardiac Hx: Technical Quality: Fair Contrast 1: Total Dose (mL): Contrast 2: Total Dose (mL): MEASUREMENTS (Male / Female) Normal Values 2D ECHO LV Diastolic Diameter PLAX 4.1 cm 4.2 - 5.9 / 3.9 - 5.3 cm LV Systolic Diameter PLAX 2.7 cm IVS Diastolic Thickness 1.3 cm 0.6 - 1.0 / 0.6 - 0.9 cm LVPW Diastolic Thickness 1.1 cm 0.6 - 1.0 / 0.6 - 0.9 cm LV Relative Wall Thickness 0.6 RV Internal Dim ED PLAX 2.7 cm LA Systolic Diameter LX 3.0 cm 3.0 - 4.0 / 2.7 - 3.8 cm LV Diastolic Volume MOD 4C 53.4 cm??? LV Systolic Volume MOD 4C 22.0 cm??? LV Ejection Fraction MOD 4C 58.8 % LV Cardiac Index MOD 4C 1213.8 cm???/min???m??? LV Diastolic Length 4C 7.1 cm LV Systolic Length 4C 6.7 cm LV Diastolic Volume MOD 2C 62.2 cm??? LV Systolic Volume MOD 2C 26.9 cm??? LV Ejection Fraction MOD 2C 56.7 % LV Cardiac Index MOD 2C 1362.8 cm???/min???m??? LV Diastolic Length 2C 7.9 cm LV Systolic Length 2C 7.0 cm LA Volume 38.9 cm??? 18 - 58 / 22 - 52 cm??? LA Volume Index 19.3 cm???/m??? 16 - 28 cm???/m??? M-MODE Aortic Root Diameter MM 3.0 cm AV Cusp Separation MM 2.2 cm DOPPLER AV Peak Velocity 120.6 cm/s AV Peak Gradient 5.8 mmHg MV Area PHT 2.4 cm??? Mitral E Point Velocity 51.8 cm/s Mitral A Point Velocity 61.5 cm/s Mitral E to A Ratio 0.8 MV Deceleration Time 310.2 ms TR Peak Velocity 215.5 cm/s TR Peak Gradient 18.6 mmHg Right Ventricular Systolic Press 23.6 mmHg FINDINGS Left Ventricle Left ventricular ejection fraction is estimated at 55-60 %. Left ventricular cavity size normal.Normal left ventricular systolic function with no obvious regional wall motion abnormalities. Mildly increased left ventricular wall thickness. Right Ventricle Normal right ventricular size. Right ventricular systolic pressure within normal limits. Right Atrium Normal right atrial size. No right atrial thrombus or mass seen. Left Atrium Normal left atrial size. No left atrial thrombus or mass present. Mitral Valve Structurally normal mitral valve. No mitral stenosis, regurgitation or prolapse. Aortic Valve Trileaflet aortic valve. No aortic valve stenosis or regurgitation. Tricuspid Valve Structurally normal tricuspid valve. Mild tricuspid regurgitation. Pulmonic Valve Structurally normal pulmonic valve. No pulmonic regurgitation. Pericardium No pericardial or pleural effusion. Aorta Normal size aortic root and proximal ascending aorta. CONCLUSIONS 1. Normal left ventricular size and systolic function 2. Mild tricuspid regurgitation with no evidence of pulmonary hypertension Previewed by: Dr. Ricardo Mathew MD (Electronically Signed) Final Date: 02 January 2024 11:46
== END | disposition home or self-care (01) ==
LOC: RADNMMAIN 10:12
PROVIDERS: ATTEND Family Medicine
DX: H35.033 Hypertensive retinopathy, bilateral
CPT/HCPCS: 93017; 93306

== ENCOUNTER → 2024-03-03 | Outpatient (CLI) | payer MEDICARE ==
[2024-03-03 11:02] VITALS: BP 128/91; PULSE 78; RESP 18; TEMP 98.7
--- NOTE | 2024-03-03 11:40 | P.HPOB ---
History of Present Illness H&P Date: 03/03/24 Chief Complaint: The patient is here for her routine gynecologic exam and ma mmogram. This is a 68-year-old G3, P3 with an LMP of 2010. Patient is without gynecologic complaints and denies any postmenopausal bleeding. She has not been using the estrogen vaginal cream but thinks she may try it. She does have it at home. Review of Systems The patient has lost 10 pounds over the last year. She has been exercising regularly and has been using a agency trainer at the [facility]. This has helped significantly with her spinal stenosis problems. She denies respiratory, cardiac, or G.I. problems. Past Medical History Past Medical History: GERD/Reflux, Hyperlipidemia, Hypertension, Osteoarthritis (OA) Additional Past Medical History / Comment(s): Seasonal allergies. Diverticulosis. Bursitis right hip. Hx ortega breasts and abdomen (was robert tomatoes), hospitalized 4 days, all healed. Hx Vertigo. Lumbar stenosis. PAST SCALEMAKER HISTORY: She has no history of STDs. History of Any Multi-Drug Resistant Organisms: None Reported Past Surgical History: Breast Surgery Additional Past Surgical History / Comment(s): Colonoscopy 2021(next after 5yr). Past Anesthesia/Blood Transfusion Reactions: No Reported Reaction Past Psychological History: Depression Additional Psychological History / Comment(s): Bouts of depression, resolved. Smoking Status: Current every day smoker Past Alcohol Use History: Rare (Less than 10 drinks per year.) Additional Past Alcohol Use History / Comment(s): Smoker for many yrs, 1/2 ppd. Past Drug Use History: None Reported Additional History: She has been since 1980 but is no longer sexually active. She is not working outside of the home. - Past Family History Mother Family Medical History: No Reported History Father Family Medical History: Myocardial Infarction ([place]) Brother(s) Family Medical History: Diabetes Mellitus Sister(s) Family Medical History: Pulmonary Embolus Additional Family Medical History / Comment(s): PE from Covid. Medications and Allergies Home Medications Medication Instructions Recorded Confirmed Type Atorvastatin [Lipitor] 40 mg PO HS 07/23/16 03/03/24 History Aspirin [Navarino Aspirin EC] 81 mg PO DAILY 01/10/21 03/03/24 History lisinopriL [Zestril] 5 mg PO HS 07/21/21 03/03/24 History Cholecalciferol (Vitamin D3) 50 mcg PO DAILY 03/03/24 03/03/24 History [Vitamin D3 (50 Mcg = 2000 Iu)] Allergies Allergy/AdvReac Type Severity Reaction Status Date / Time cephalexin [From Keflex] AdvReac yeast Verified 03/03/24 10:51 infection codeine AdvReac Unknown Verified 03/03/24 10:51 Quinolones AdvReac Unknown Verified 03/03/24 10:51 Exam Vital Signs Temp Pulse Resp BP Pulse Ox 03/03/24 11:01 98.7 F 78 18 128/91 96 Intake and Output 03/02/24 03/03/24 03/03/24 22:59 06:59 14:59 Other: Weight 88.904 kg Height 5 feet 6 inches, weight 196 pounds, BMI 31.6. This is a well-developed well-nourished white female who is alert and oriented times 3 in no acute distress. HEENT: Within normal limits. NECK: Supple without mass or thyromegaly. CHEST AND LUNGS: Clear to auscultation. HEART: Regular rate and rhythm. BREASTS: Are without mass or discharge. AXILLARY EXAM: Negative for adenopathy. BACK: Negative for CVA tenderness. ABDOMEN: Soft, nontender, without palpable masses. PELVIC EXAM: Normal external genitalia with mild atrophy. Cervix and vagina appear normal with mild atrophy. There is no unusual discharge. There is no evidence of prolapse. The uterus is midposition, nongravid size and nontender. There are no palpable adnexal masses or tenderness. RECTAL EXAM: Rectovaginal exam is negative for mass or tenderness and is negative for occult blood. EXTREMITIES: Nontender. IMPRESSION: 1. 68-year-old menopausal female with normal gynecologic exam. 2. History of osteopenia. PLAN: 1. Pap smears have been discontinued. 2. Self breast awareness was discussed with the patient. We have also discussed symptoms associated with inflammatory breast cancer. 3. Screening mammogram was done today. 4. Osteoporosis prevention was discussed. I have stressed the importance of adequate calcium, vitamin D and regular exercise. Recommended amounts of calcium and vitamin D were also discussed. We will plan on repeating the bone density test in 1 year. 5. She states she would like to try the estrogen vaginal cream as directed. She does have this at home. She will call if she needs refills. 6. She was advised to return in one year for her annual well woman exam.
--- NOTE | 2024-03-09 11:30 | MM ---
Reason for Exam: Screening (asymptomatic). Last mammogram was performed 1 year(s) and 1 month(s) ago. Patient History: Menarche at age 15. First Full-Term at age 27. Postmenopausal. Risk Values: Iraida 5 year model risk: 1.7%. NCI Lifetime model risk: 5.6%. Prior Study Comparison: 01/10/2021 Bilateral Screening Mammogram, [facility]. 01/23/2022 Bilateral MG 3D screening mammo w/cad, [facility]. 02/05/2023 Bilateral MG 3D screening mammo w/cad, [facility]. Tissue Density: The breasts are almost entirely fatty. Findings: Analyzed By CAD. Right breast: There is no suspicious group of microcalcifications or new suspicious mass. Benign-appearing calcifications right breast. Left breast: There is no suspicious group of microcalcifications or new suspicious mass. Benign-appearing calcifications left breast. Overall Assessment: Benign, BI-RAD 2 Management: Screening Mammogram of both breasts in [address] [facility] will attempt to contact patient to return for supplemental views and ultrasound if indicated. Patient should continue monthly self-breast exams. A clinical breast exam by your physician is recommended on an annual basis. This exam should not preclude additional follow-up of suspicious palpable abnormalities. Note on Iraida scores and lifetime risk: 1. A Iraida score greater than 3% is considered moderate risk. If this is the case, consider specialist referral to assess eligibility for a risk reducing agent. 2. If overall lifetime risk for the development of breast cancer is 20% or higher, the patient may qualify for future screening with alternating mammogram and breast MRI. [facility], , 03/09/2024 11:27 AM. Electronically signed and approved by: Gerry Katz DO
== END | disposition home or self-care (01) ==
LOC: RADMAMWWP 10:10
PROVIDERS: ATTEND Obstetrics & Gynecology
DX: Z12.31 Encounter for screening mammogram for malignant neoplasm of breast (principal); I10 Essential (primary) hypertension; K21.9 Gastro-esophageal reflux disease without esophagitis; M19.90 Unspecified osteoarthritis, unspecified site; E78.5 Hyperlipidemia, unspecified; F17.210 Nicotine dependence, cigarettes, uncomplicated; M85.80 Other specified disorders of bone density and structure, unspecified site; Z78.0 Asymptomatic menopausal state; Z83.3 Family history of diabetes mellitus; Z88.1 Allergy status to other antibiotic agents; Z88.5 Allergy status to narcotic agent
CPT/HCPCS: 77063; 77067